=== PATIENT | female | born 1940 | race Caucasian/White ===

== ENCOUNTER 2021-02-24 11:23 | Emergency (ER) | payer MEDICARE ==
[~2021-02-24] VITALS: Ht 154.9 cm; Wt 53.5 kg
== END 2021-02-24 12:53 | disposition home or self-care (01) ==
LOC: FSED 11:36
DX: M25.511 Pain in right shoulder (principal); M25.521 Pain in right elbow; W17.89XA Other fall from one level to another, initial encounter; Y92.098 Other place in other non-institutional residence as the place of occurrence of the external cause; I10 Essential (primary) hypertension; E03.9 Hypothyroidism, unspecified
CPT/HCPCS: 99283

== ENCOUNTER 2022-06-03 09:57 | Observation (INO) | payer MEDICARE ==
[~2022-06-03] VITALS: Ht 154.9 cm; Wt 53.5 kg
[2022-06-03 10:16] LABS: BASOPHILS # (AUTO) 0.1 (0.0-0.1); BASOPHILS % 1.1 % (0.0-1.0); EOSINOPHILS # (AUTO) 0.3 (0.0-0.4); EOSINOPHILS % 4.8 % (0.0-6.0); HEMATOCRIT 37.2 % (34.2-44.1); HEMOGLOBIN 12.3 g/dL (12.0-16.0); LYMPHOCYTES # (AUTO) 2.2 (1.0-3.2); LYMPHOCYTES % 31.6 % (18.0-39.1); MEAN CORPUSCULAR HGB CONC 33.1 g/dL (31-35); MEAN CORPUSCULAR VOLUME 90.7 fL (81-99); MONOCYTES # (AUTO) 0.5 (0.2-0.8); MONOCYTES % 6.4 % (4.4-11.3); NEUTROPHILS # (AUTO) 3.9 (2.1-6.9); NEUTROPHILS % 55.8 % (38.7-80.0); PLATELET COUNT 271 x10e3/uL (140-360); RED CELL DISTRIBUTION WIDTH 12.5 % (11.7-14.4)
[2022-06-03] MEDS ORDERED: KETOROLAC TROMETHAMINE 30 MG/ML VIAL IV STA (10:26)
[2022-06-03 10:33] LABS: ALBUMIN/GLOBULIN RATIO 1.2 (0.8-2.0); CALCIUM 9.2 mg/dL (8.4-10.2); CREATININE, SERUM 1.09 mg/dL (0.57-1.11)
[2022-06-03] MEDS ORDERED: Morphine 4mg INJECTION 4 MG/ML INJ IV PRN (11:30)
[2022-06-03] MEDS ORDERED: ASPIRIN 81 MG CHEW TAB PO ONE (11:30)
[2022-06-03] MEDS ORDERED: LOSARTAN POTASS25 MG PO (14:48)
[2022-06-03] MEDS ORDERED: LEVOTHYROXINE75 MCG PO (14:48)
[2022-06-03] MEDS ORDERED: MULTI-VITAMIN1 EACH PO (14:48)
[2022-06-03] MEDS ORDERED: LORAZEPAM2 MG/1 M1 PO (14:48)
[2022-06-03] MEDS ORDERED: CRESTOR5 MG PO (14:48)
[2022-06-03 15:50] VITALS: BP 146/75
[2022-06-03 17:57] VITALS: BP 169/76
[2022-06-03] MEDS: LOSARTAN POTASSIUM 25 MG TAB PO SCH (17:59)
[2022-06-03] MEDS ORDERED: ATIVAN1 MG PO (19:33)
[2022-06-03 20:16] VITALS: BP 169/76
[2022-06-03 20:31] VITALS: BP 181/81
[2022-06-03 20:40] LABS: CREATINE KINASE MB 1.8 ng/mL (0-5.0)
[2022-06-03] MEDS: GABAPENTIN 100 MG CAP PO SCH (20:40)
[2022-06-03] MEDS: TRAMADOL HCL 50 MG TAB PO PRN (20:41)
[2022-06-03] MEDS ORDERED: LORAZEPAM 1 MG TAB PO SCH (21:00)
[2022-06-04 00:17] VITALS: BP 159/80
[2022-06-04] MEDS: TRAMADOL HCL 50 MG TAB PO PRN ×2 (03:51→09:18)
[2022-06-04 04:00] VITALS: BP 174/80
[2022-06-04 05:52] LABS: BASOPHILS # (AUTO) 0.1 (0.0-0.1); EOSINOPHILS # (AUTO) 0.4 (0.0-0.4); HEMATOCRIT 34.6 % (34.2-44.1); HEMOGLOBIN 11.5 g/dL (12.0-16.0); LYMPHOCYTES # (AUTO) 1.6 (1.0-3.2); MEAN CORPUSCULAR HGB CONC 33.2 g/dL (31-35); MEAN CORPUSCULAR VOLUME 90.3 fL (81-99); MONOCYTES # (AUTO) 0.5 (0.2-0.8); MONOCYTES % 8.7 % (4.4-11.3); NEUTROPHILS # (AUTO) 3.4 (2.1-6.9); NEUTROPHILS % 56.1 % (38.7-80.0); PLATELET COUNT 237 x10e3/uL (140-360); RED BLOOD COUNT 3.83 x10e6/uL (3.6-5.1); RED CELL DISTRIBUTION WIDTH 12.5 % (11.7-14.4)
[2022-06-04] MEDS ORDERED: LEVOTHYROXINE SODIUM 75 MCG TAB PO SCH (06:00)
[2022-06-04 06:21] LABS: CALCIUM 8.6 mg/dL (8.4-10.2)
[2022-06-04 07:08] LABS: CREATINE KINASE MB 1.5 ng/mL (0-5.0)
[2022-06-04 07:43] VITALS: BP 174/80
[2022-06-04 08:21] VITALS: BP 166/72
[2022-06-04] MEDS: GABAPENTIN 100 MG CAP PO SCH ×2 (08:26→14:23)
[2022-06-04] MEDS: LOSARTAN POTASSIUM 25 MG TAB PO SCH (08:26)
[2022-06-04] MEDS ORDERED: LOSARTAN POTASSIUM 25 MG TAB PO SCH (09:00)
[2022-06-04] MEDS ORDERED: MULTIVITAMINS/MINERALS TAB PO SCH (09:00)
[2022-06-04 12:16] VITALS: BP 160/75
[2022-06-04 13:15] LABS: CREATINE KINASE 70 IU/L (29-168)
[2022-06-04] MEDS ORDERED: COREG3.125 MG PO (14:00)
[2022-06-04] MEDS ORDERED: ACETAMINOPHEN-1 EAC4 PO (14:00)
[2022-06-04] MEDS ORDERED: NEURONTIN300 MG PO (14:01)
[2022-06-04] MEDS ORDERED: ACETAMINOPHEN/CODEINE 300MG - 30MG TAB PO ONE (14:15)
[2022-06-04] MEDS ORDERED: CARVEDILOL 3.125 MG TAB PO SCH (17:00)
[2022-06-04] MEDS ORDERED: SIMVASTATIN 20 MG TAB PO SCH (21:00)
== END 2022-06-04 14:51 | disposition home or self-care (01) ==
LOC: ER 10:02 → ERHOLD 11:26 → MED/SURG3 13:28
PROVIDERS: ADMIT Internal Medicine; ATTEND Internal Medicine
DX: R07.89 Other chest pain (principal); I10 Essential (primary) hypertension; Z20.822 Contact with and (suspected) exposure to COVID-19; Z79.899 Other long term (current) drug therapy
CPT/HCPCS: 36415; 71045; 71250; 72141; 80048; 80053; 82550; 82553; 84484; 85025; 93005; 93306; 94799; 99284; G0378; J1885

== ENCOUNTER 2022-07-02 13:18 | Emergency (ER) | payer MEDICARE ==
[~2022-07-02] VITALS: Ht 154.9 cm; Wt 51.7 kg
[~2022-07-02 13:18] MED LIST: ACETAMINOPHEN-1 EAC4 PO; ATIVAN1 MG PO; COREG3.125 MG PO; CRESTOR5 MG PO; LEVOTHYROXINE75 MCG PO; LORAZEPAM2 MG/1 M1 PO; LOSARTAN POTASS25 MG PO; MULTI-VITAMIN1 EACH PO; NEURONTIN300 MG PO
[2022-07-02] MEDS ORDERED: TETANUS/DIPHTHERIA TOX ADULT 0.5 ML SYR ONE (14:23)
[2022-07-02] MEDS ORDERED: TETANUS/DIPHTHERIA TOX ADULT 0.5 ML SYR IM ONE (14:30)
[2022-07-02 15:16] VITALS: O2SAT 99
[2022-07-02] MEDS ORDERED: ATORVASTATIN CA10 MG PO (15:36)
== END 2022-07-02 15:16 | disposition home or self-care (01) ==
LOC: FSED 13:30
DX: S61.412A Laceration without foreign body of left hand, initial encounter (principal); Z23 Encounter for immunization; X58.XXXA Exposure to other specified factors, initial encounter; Y92.009 Unspecified place in unspecified non-institutional (private) residence as the place of occurrence of the external cause
CPT/HCPCS: 90471; 90714; 96372; 99283